=== PATIENT | male | born 1960 | race Two or more races ===

== ENCOUNTER 2021-06-06 07:30 | Inpatient (IN) | payer OTHER ==
[~2021-06-06] VITALS: Ht 182.9 cm; Wt 5.0 kg
[~2021-06-06 07:30] MED LIST: CALCIUM500 M1 PO; CHOLECALCIFEROL1 GM PO; CRESTOR40 MG PO; FOSAMAX70 MG PO; LIDOCAINE; MAGNESIUM500 MG PO; MORPHINE PO; ROXICODONE5 MG PO; TERIPARATIDE
[2021-06-07] MEDS ORDERED: MORPHINE SULFAT60 M3 (13:22)
[2021-06-07] MEDS ORDERED: LIDOCAINE30 GM (13:23)
== END 2021-06-08 10:20 | disposition home or self-care (01) | DRG 473 ==
LOC: CIR.AMB 07:30 → SURG 19:48
PROVIDERS: ADMIT Neurological Surgery; ATTEND Neurological Surgery
PROC: 0RG20A0 Fusion of 2 or more Cervical Vertebral Joints with Interbody Fusion Device, Anterior Approach, Anterior Column, Open Approach (ICD-10-PCS; 2021-06-06)
PROC: 4A1134G Monitoring of Peripheral Nervous Electrical Activity, Intraoperative, Percutaneous Approach (ICD-10-PCS; 2021-06-06)
PROC: 0RB30ZZ Excision of Cervical Vertebral Disc, Open Approach (ICD-10-PCS; principal; 2021-06-06 07:00)
DX: M48.02 Spinal stenosis, cervical region (principal)